=== PATIENT | female | born 1990 | race American Indian/Alaskan Native ===

== ENCOUNTER 2017-03-22 14:31 | Emergency (ER) | payer MEDICAID, OTHER ==
[2017-03-22 14:35] VITALS: BMI 29.0
[2017-03-22 14:40] VITALS: RESP 18; TEMP 97.8; O2SAT 98
--- NOTE | 2017-03-22 15:18 | ED PDOC ---
Arrival/HPI - General Chief Complaint: Female Genitourinary Time Seen by Provider: 03/22/17 15:16 Historian: Patient - History of Present Illness Narrative History of Present Illness (Text): 03/22/17 15:18 26 y/o female, no significant pmh, nkda, LMP 02/02/2017?, c/o lower back pain and vaginal bleeding x 5 days with no fall or trauma. Pt. stated that she has been having vaginal spotting with lower back pain for the past 5 days, no dizziness, no vaginal discharge other than vaginal spotting, told that she is ? but not sure, no palpitation, no night sweat, no dizziness, no numbness or tingling, no rash, no other medical or psychological complaints. Past Medical History - Provider Review Nursing Documentation Reviewed: Yes - Infectious Disease Hx of Infectious Diseases: None - Cardiac Hx Cardiac Disorders: No - Pulmonary Hx Respiratory Disorders: No - Neurological Hx Neurological Disorder: No Other/Comment: brain tumor with surgery - HEENT Hx HEENT Disorder: No - Renal Hx Renal Disorder: No Hx Dialysis: No Hx Kidney Stones: No Hx Neurogenic Bladder: No Hx Pyelonephritis: No Hx Renal Cancer: No Hx Renal Failure: No - Endocrine/Metabolic Hx Endocrine Disorders: No - Hematological/Oncological Hx Blood Disorders: No - Integumentary Hx Dermatological Disorder: No - Musculoskeletal/Rheumatological Hx Musculoskeletal Disorders: No Hx Falls: No - Gastrointestinal Hx Gastrointestinal Disorders: No - Genitourinary/Gynecological Hx Genitourinary Disorders: No - Psychiatric Hx Psychophysiologic Disorder: No Hx Substance Use: No - Surgical History Other/Comment: brain tumor removal - Anesthesia Hx Anesthesia: Yes Hx Anesthesia Reactions: No Hx Malignant Hyperthermia: No Family/Social History - Physician Review Nursing Documentation Reviewed: Yes Family/Social History: Unknown Family HX Smoking Status: Never Smoked Hx Alcohol Use: No Hx Substance Use: No Allergies/Home Meds Allergies/Adverse Reactions: Allergies metoclopramide [From Reglan] Adverse Reaction (Verified 12/12/16 06:47) WHEEZING As per pt, reglan caused dystonic reaction antiemetic Allergy (Uncoded 12/06/16 11:00) ANAPHYLAXIS Home Medications: Home Meds Medication Instructions Recorded Confirmed Norgestimate-Ethinyl Estradiol 1 tab PO DAILY 12/12/16 12/12/16 [Tri-Sprintec Tablet] Review of Systems - Review of Systems Constitutional: absent: Fatigue, Fevers Eyes: absent: Vision Changes ENT: absent: Hearing Changes Respiratory: absent: SOB, Cough Cardiovascular: absent: Chest Pain Gastrointestinal: absent: Abdominal Pain, Nausea, Vomiting Genitourinary Female: Vaginal Bleeding. absent: Dysuria, Frequency, Hematuria, Urine Output Changes, Vaginal Discharge Musculoskeletal: Back Pain. absent: Arthralgias, Neck Pain Skin: absent: Rash, Pruritis Neurological: absent: Headache Psychiatric: absent: Anxiety, Depression Physical Exam Vital Signs Reviewed: Yes Vital Signs Temp Pulse Resp BP Pulse Ox 03/22/17 14:33 97.8 F 67 18 122/86 98 Temperature: Afebrile Blood Pressure: Normal Pulse: Regular Respiratory Rate: Normal Appearance: Positive for: Well-Appearing, Non-Toxic, Comfortable Pain Distress: Mild Mental Status: Positive for: Alert and Oriented X 3 - Systems Exam Head: Present: Atraumatic, Normocephalic Pupils: Present: PERRL Extroacular Muscles: Present: EOMI Conjunctiva: Present: Normal Mouth: Present: Moist Mucous Membranes Neck: Present: Normal Range of Motion. No: Meningeal Signs, MIDLINE TENDERNESS , Paraspinal Tenderness Respiratory/Chest: Present: Clear to Auscultation, Good Air Exchange. No: Respiratory Distress, Accessory Muscle Use Cardiovascular: Present: Regular Rate and Rhythm, Normal S1, S2. No: Murmurs Abdomen: Present: Normal Bowel Sounds. No: Tenderness, Distention, Peritoneal Signs Genitourinary/Pelvic Exam: Present: Other (Pt. refused pelvic examination) Back: Present: Normal Inspection Upper Extremity: Present: Normal Inspection. No: Cyanosis, Edema Lower Extremity: Present: Normal Inspection. No: Edema Neurological: Present: GCS=15, Speech Normal, Motor Func Grossly Intact, Gait Normal, Memory Normal Skin: Present: Warm, Dry, Normal Color. No: Rashes Psychiatric: Present: Alert, Oriented x 3, Normal Insight, Normal Concentration Medical Decision Making ED Course and Treatment: 03/22/17 15:26 -labs/ua/type and screen/pt/ptt -Transvaginal -IVF/tylenol -Observe and reassess 03/22/17 17:17 -Pain resolved -Urine hcg is negative -Labs are non-significant with hgb 11, Beta HCG is less than 2.39 -UA show +UTI, rocephine IV ordered -Blood type O+ -Sonogram show No evidence of intrauterine gestation. No adnexal mass or free fluid in the pelvis. -Pt. is asymptomatic, feeling much better, will discharge home. -Discharge home with macrobid, tylenol, bed rest, follow up with your own pmd and obgyn within 2 days, return to the ER for any new or worsening signs or symptoms. - Lab Interpretations Lab Results: 03/22/17 15:30 03/22/17 15:30 Lab Results 03/22/17 16:00: Blood Type Confirm O POSITIVE 03/22/17 15:30: Blood Type O POSITIVE, Antibody Screen Negative, BBK History Checked No verified bt 03/22/17 15:30: WBC 7.8, RBC 4.25, Hgb 11.2 L, Hct 35.5 L, MCV 83.5, MCH 26.4, MCHC 31.5, RDW 14.6 H, Plt Count 260, MPV 11.5 H, Gran % 57.6, Lymph % (Auto) 32.4, [place] % (Auto) 7.5 H, Eos % (Auto) 2.2, Baso % (Auto) 0.3, Gran # 4.52, Lymph # 2.5, [place] # 0.6, Eos # 0.2, Baso # 0.02 03/22/17 15:30: Beta HCG, Quant < 2.39 03/22/17 15:30: Sodium 139, Potassium 3.8, Chloride 104, Carbon Dioxide 24, Anion Gap 15, BUN 11, Creatinine 0.9, Est GFR ( Amer) > 60, Est GFR (Non- Af Amer) > 60, Random Glucose 83, Calcium 10.2, Total Bilirubin 0.3, AST 26, ALT 25, Alkaline Phosphatase 58, Total Protein 7.5, Albumin 4.3, Globulin 3.2, Albumin/Globulin Ratio 1.3 03/22/17 15:30: Urine Color Dark yellow, Urine Appearance Cloudy, Urine pH 6.5, Ur Specific [place] 1.025, Urine Protein 100 H, Urine Glucose (UA) Negative, Urine Ketones 15 H, Urine Blood Large H, Urine Nitrate Negative, Urine Bilirubin Small H, Urine Urobilinogen 1.0 H, Ur Leukocyte Esterase Trace H, Urine RBC Tntc, Urine WBC 5 - 10, Ur Epithelial Cells 4 - 5, Amorphous Sediment Few, Urine Bacteria Many - RAD Interpretation Radiology Orders: 03/22/17 15:17 OB TRANSVAGINAL [US] Stat HISTORY: 5 weeks , low back pain COMPARISON: None available. TECHNIQUE: Transvaginal pelvic ultrasound was performed. FINDINGS: UTERUS: Measures 6.3 x 3.3 x 4.7 cm. Normal in size and appearance. No fibroid or other mass lesion seen. ENDOMETRIUM: Measures 2.5 mm in diameter. There is no evidence of intrauterine gestation. The central endometrial echo complex is grossly normal in appearance. CERVIX: No cervical abnormality identified. RIGHT OVARY: Measures 2.3 x 1.3 x 1.8 cm. No solid mass. Normal flow. LEFT OVARY: Measures 1.6 x 0.9 x 0.8 cm. No solid mass. Normal flow. FREE FLUID: No significant free fluid noted. OTHER FINDINGS: None. IMPRESSION: No evidence of intrauterine gestation. No adnexal mass or free fluid in the pelvis. 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 Disposition/Present on Arrival - Present on Arrival Any Indicators Present on Arrival: No History of DVT/PE: No History of Uncontrolled Diabetes: No Urinary Catheter: No History of Decub. Ulcer: No History Surgical Site Infection Following: None - Disposition Have Diagnosis and Disposition been Completed?: Yes Diagnosis: Vaginal bleeding, UTI (urinary tract infection) Disposition: HOME/ ROUTINE Disposition Time: 17:12 Patient Plan: Discharge Patient Problems: Current Active Problems Problem Status Onset UTI (urinary tract infection) Acute Vaginal bleeding Acute Condition: IMPROVED Additional Instructions: -Discharge home with macrobid, tylenol, bed rest, follow up with your own pmd and obgyn within 2 days, return to the ER for any new or worsening signs or symptoms. Prescriptions: Acetaminophen [Tylenol 325mg tab] 2 tab PO QID PRN #30 tab PRN Reason: Other Nitrofurantoin Macrocrystals [Macrobid] 100 mg PO BID #14 cap Referrals: Hema Hallman MD [Primary Care Provider] - Follow up with primary Eufemia Lawrence MD [Staff Provider] - Follow up with primary Forms: WORK NOTE
[2017-03-22 15:59] LABS: BASO # 0.02 K/mm3 (0.0-2.0); BASO % 0.3 % (0.0-3.0); EOS # 0.2 (0.0-0.7); EOS % 2.2 % (1.5-5.0); GRAN # 4.52 (1.4-6.5); GRAN % 57.6 % (50.0-68.0); HEMOGLOBIN 11.2 g/dL (12.0-16.0); LYMPH # 2.5 (1.2-3.4); LYMPH % 32.4 % (22.0-35.0); MEAN CELL VOLUME 83.5 fl (80.0-105.0); MEAN CORPUSCULAR HEMOGLOBIN 26.4 pg (25.0-35.0); MEAN CORPUSCULAR HGB CONC 31.5 g/dl (31.0-37.0); MEAN PLATELET VOLUME 11.5 fl (7.0-11.0); MONO # 0.6 (0.1-0.6); MONO % 7.5 % (1.0-6.0); RBC 4.25 10^6/uL (3.5-6.1); RED CELL DISTRIBUTION WIDTH 14.6 % (11.5-14.5); WHITE BLOOD COUNT 7.8 10^3/ul (4.5-11.0)
[2017-03-22 16:00] LABS: PH,URINE 6.5 (4.7-8.0); URINE BILIRUBIN SMALL (NEGATIVE); URINE BLOOD LARGE (NEGATIVE); URINE GLUCOSE (UA) NEGATIVE (NEGATIVE); URINE LEUKOCYTE ESTERASE TRACE Leu/uL (NEGATIVE); URINE NITRATE NEGATIVE (NEGATIVE); URINE PROTEIN 100 mg/dL (<30 mg/dL)
[2017-03-22 16:02] LABS: URINE APPEARANCE CLOUDY (CLEAR); URINE COLOR DARK YELLOW (YELLOW)
[2017-03-22 16:06] LABS: ALB/GLOB RATIO 1.3 (1.1-1.8); ALBUMIN 4.3 g/dL (3.0-4.8); ALT/SGPT 25 U/L (7-56); AST/SGOT 26 U/L (14-36); BLOOD UREA NITROGEN 11 mg/dL (7-21); CALCIUM 10.2 mg/dL (8.4-10.5); GFR AFRICAN-AMERICAN > 60; GFR NON-AFRICAN AMERICAN > 60
[2017-03-22 16:09] LABS: URINE AMORPHOUS SEDIMENT FEW; URINE BACTERIA MANY (NEG); URINE RBC TNTC /hpf (0-2)
--- NOTE | 2017-03-22 16:59 | US ---
HISTORY: 5 weeks , low back pain COMPARISON: None available. TECHNIQUE: Transvaginal pelvic ultrasound was performed. FINDINGS: UTERUS: Measures 6.3 x 3.3 x 4.7 cm. Normal in size and appearance. No fibroid or other mass lesion seen. ENDOMETRIUM: Measures 2.5 mm in diameter. There is no evidence of intrauterine gestation. The central endometrial echo complex is grossly normal in appearance. CERVIX: No cervical abnormality identified. RIGHT OVARY: Measures 2.3 x 1.3 x 1.8 cm. No solid mass. Normal flow. LEFT OVARY: Measures 1.6 x 0.9 x 0.8 cm. No solid mass. Normal flow. FREE FLUID: No significant free fluid noted. OTHER FINDINGS: None. IMPRESSION: No evidence of intrauterine gestation. No adnexal mass or free fluid in the pelvis.
[2017-03-22] MEDS ORDERED: cefTRIAXone 1 gm 1 GM/100 ML BAG IVPB SCH (17:15)
[2017-03-22 18:07] VITALS: BP 125/47; PULSE 64
== END 2017-03-22 18:07 | disposition home or self-care (01) ==
LOC: ED 14:31
DX: N39.0 Urinary tract infection, site not specified (principal); N93.9 Abnormal uterine and vaginal bleeding, unspecified
CPT/HCPCS: 76817; 80053; 81001; 84702; 85025; 86850; 86900; 87086; 96365; 99285; J0696